=== PATIENT | male | born 1965 | race Caucasian/White ===

== ENCOUNTER 2019-05-18 08:25 | Emergency (ER) | payer SELFPAY ==
[~2019-05-18] VITALS: Ht 175.3 cm; Wt 105.4 kg
[2019-05-18] MEDS ORDERED: OXYcodone/APAP 5/325MG TABLET PO ONE (09:00)
[2019-05-18] MEDS ORDERED: METHOCARBAMOL 750 MG TABLET PO ONE (09:00)
[2019-05-18] MEDS ORDERED: METHOCARBAMOL 750 MG TABLET ONE (09:00)
[2019-05-18] MEDS ORDERED: KETOROLAC 30 MG/1 ML IM ONE (09:00)
[2019-05-18] MEDS ORDERED: KETOROLAC 30 MG/1 ML ONE (09:00)
[2019-05-18] MEDS ORDERED: OXYcodone/APAP 5/325MG TABLET ONE (09:01)
[2019-05-18 09:32] VITALS: BP 157/89
== END 2019-05-18 09:47 | disposition home or self-care (01) ==
LOC: ED 09:05
DX: S39.012A Strain of muscle, fascia and tendon of lower back, initial encounter (principal); X58.XXXA Exposure to other specified factors, initial encounter; Y93.89 Activity, other specified; Y92.89 Other specified places as the place of occurrence of the external cause; Y99.8 Other external cause status
CPT/HCPCS: 96372; 99283; J1885